=== PATIENT | female | born 1930 | race Caucasian/White ===

== ENCOUNTER 2018-03-14 11:56 | Emergency (ER) | payer MEDICARE, OTHER ==
--- NOTE | 2018-03-14 13:14 | RAD ---
CHEST 2 VIEWS: Date: 03/14/18 HISTORY: Fall. COMPARISON: None. FINDINGS: There is mild blunting right lateral costophrenic sulcus. No pneumothorax. No large effusion. Moderat e spondylotic changes mid thoracic spine. Heart size upper limits of normal. IMPRESSION: Mild blunting right lateral costophrenic sulcus may reflect scarring, less likely effusion. POS: [facility]
--- NOTE | 2018-03-14 13:39 | CT ---
CT BRAIN WITHOUT CONTRAST: HISTORY: Injury. History of surgery for a nonmalignant brain tumor. Fall. COMPARISON: None. FINDINGS: There is an abnormal density along the superior margin of the tentorium and cerebelli. 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 There is loss of volume of the medial margins of both cerebellar hemisp heres. No acute hemorrhage. No midline shift or mass effect. IMPRESSION: Abnormal hyperdense focus along the superior margin of the tentorium cerebelli measuring 1.4 x 1.9 x 1.5 cm (AP x transverse x CC). Evidence of prior craniectomy changes Recommend correlation with abdi or imaging to evaluate for change. If there are no prior images available for comparison, a followup nonemergent MRI with and without contrast may be beneficial in this patient. POS: FARIDA
--- NOTE | 2018-03-14 13:49 | CT ---
CT CERVICAL SPINE WITHOUT CONTRAST: History Fall. COMPARISON: None. FINDINGS: There is osseous fusion of the C3 and C4 vertebral bodies, likely degenerative in nature. 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 There is anterolisthesis of C7 over T1 of approximately 4 mm. Occipital condyles are intact. Odontoid process is intact. No acute fracture or malalignment of the cervical spine. Nodular density is present in the left lung apex incompletely evaluated on this examination, although on the given images measuring just under 6 mm. Calcification is noted of the right lobe of the thyroid. IMPRESSION: 1. Advanced degenerative changes. No acute displaced fracture or malalignment of the cervical spine . 2. Mildly heterogeneous thyroid with calcifications of the right lobe. Nonemergent ultrasound may b e beneficial if clinically warranted. POS: FARIDA
== END 2018-03-14 13:25 | disposition home or self-care (01) ==
LOC: MADERS 11:56
DX: R51 Headache (principal); W18.30XA Fall on same level, unspecified, initial encounter; E78.5 Hyperlipidemia, unspecified; I10 Essential (primary) hypertension
CPT/HCPCS: 70450; 71046; 72125